=== PATIENT | female | born 1950 | race Caucasian/White ===

== ENCOUNTER 2018-03-17 15:14 | Outpatient (CLI) | payer MEDICARE ==
--- NOTE | 2018-03-17 16:14 | RAD ---
LEFT FOOT 3 VIEWS: HISTORY: Injury to the third digit. COMPARISON: None. FINDINGS: There a flattened third metatarsal head suggesting a prior avascular necrosis. There is bipartite me dial hallux sesamoid. Mild vascular calcifications. Lisfranc interval appears to be maintained. IMPRESSION: 1. 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 2. Bipartite medial hallux sesamoid. 3. No acute fracture. POS: [facility]
== END 2018-03-17 15:15 | disposition home or self-care (01) ==
LOC: MADRAD 15:14
PROVIDERS: ATTEND Family Medicine
DX: S99.922A Unspecified injury of left foot, initial encounter (principal); M20.12 Hallux valgus (acquired), left foot